=== PATIENT | male | born 1935 | race Caucasian/White ===

== ENCOUNTER 2018-07-25 14:33 | Inpatient (IN) | payer MEDICARE ==
[~2018-07-25] VITALS: Ht 188 cm; Wt 93.0 kg
--- NOTE | 2018-07-25 14:51 | EKG ---
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
[2018-07-25 15:05] LABS: BASO % 1 % (0-3); EOS # 0.1 x10^3/uL (0.0-0.7); EOS % 3 % (0-3); HEMATOCRIT 36.9 % (39.0-53.0); HEMOGLOBIN 12.5 g/dL (13.0-17.5); LYMPH # 1.6 x10^3/uL (1.0-4.8); LYMPH % 37 % (24-48); MEAN CORPUSCULAR HEMOGLOBIN 31 pg (25-35); MEAN CORPUSCULAR HGB CONC 34 g/dL (31-37); MEAN CORPUSCULAR VOLUME 93 fL (79-100); MONO # 0.4 x10^3/uL (0.0-1.1); MONO % 10 % (0-9); NEUT # 2.1 x10^3uL (1.8-7.7); NEUT % 49 % (31-73); PLATELET COUNT 94 x10^3/uL (140-400); RED BLOOD COUNT 3.99 x10^6/uL (4.30-5.70); RED CELL DISTRIBUTION WIDTH 14.9 % (11.5-14.5); WHITE BLOOD COUNT 4.2 x10^3/uL (4.0-11.0)
[2018-07-25 15:15] LABS: CLARITY,URINE CLEAR; COLOR,URINE AMBER; GLUCOSE,URINE NEG (NEG)
[2018-07-25 15:16] LABS: AMORPHOUS SEDIMENT,UR PRESENT /HPF; BACTERIA,URINE 0 /HPF (0-FEW); BILIRUBIN,URINE NEG (NEG); NITRITE,URINE NEG (NEG); SQUAMOUS EPITHELIAL CELL,UR OCC /LPF; UROBILINOGEN,URINE 4 mg/dL (0.2 mg/dL)
[2018-07-25 15:16] LABS: ALBUMIN 2.9 g/dL (3.4-5.0); ALBUMIN/GLOBULIN RATIO 0.9 (1.0-1.7); CALCIUM 8.6 mg/dL (8.5-10.1); CREATININE 1.1 mg/dL (0.7-1.3); GFR 64.1; MAGNESIUM 1.8 mg/dL (1.8-2.4); POTASSIUM 3.3 mmol/L (3.5-5.1); TOTAL BILIRUBIN 0.8 mg/dL (0.2-1.0); TOTAL PROTEIN 6.2 g/dL (6.4-8.2)
[2018-07-25] MEDS ORDERED: POTASSIUM CHLORIDE 20 MEQ TABLET.ER. PO ONE (15:30)
[2018-07-25] MEDS ORDERED: CIPROFLOXACIN HCL 500 MG TABLET PO ONE (15:30)
--- NOTE | 2018-07-25 17:01 | PHYS DOC ---
Past History Past Medical History: Anxiety, CAD, Cancer, Constipation, Dementia, Depression , High Cholesterol, Hypertension, Pneumonia, TIA, UTI, Other Past Surgical History: Cancer Surgery Alcohol Use: None Drug Use: None Adult General Chief Complaint Chief Complaint: PSYCH EVALUATION HPI HPI Patient is a 83 year old male resident of senior living brought in by EMS because of suicidal ideation and medical clearance for psychiatric admission. [facility] staff reported the high denies yesterday and wanted to kill himself. Patient stated he was upset yesterday and wanted to jump from the roof. He denies hallucination and homicidal ideation and any pain or suicidal ideation at this time. Review of Systems Review of Systems Constitutional: Denies fever or chills [] Eyes: Denies change in visual acuity, redness, or eye pain [] HENT: Denies nasal congestion or sore throat [] Respiratory: Denies cough or shortness of breath [] Cardiovascular: No additional information not addressed in HPI [] GI: Denies abdominal pain, nausea, vomiting, bloody stools or diarrhea [] : Denies dysuria or hematuria [] Musculoskeletal: Denies back pain or joint pain [] Integument: Denies rash or skin lesions [] Neurologic: Denies headache, focal weakness or sensory changes [] Endocrine: Denies polyuria or polydipsia [] All other systems were reviewed and found to be within normal limits, except as documented in this note. Family History Family History Not currently available Current Medications Current Medications Current Medications Medications (Trade) Dose Ordered Sig/Sravan Start Time Stop Time Status Last Admin Dose Admin Ciprofloxacin (Cipro) 500 mg 1X ONCE 07/25/18 15:30 07/25/18 15:31 DC 07/25/18 15:54 500 MG Potassium Chloride (Klor-Con) 40 meq 1X ONCE 07/25/18 15:30 07/25/18 15:31 DC 07/25/18 15:54 40 MEQ Allergies Allergies Allergies Coded Allergies Type Severity Reaction Last Updated Verified donepezil Allergy Unknown 07/25/18 Yes Physical Exam Physical Exam Constitutional: Well nourished, no acute distress, non-toxic appearance. [] HENT: Normocephalic, atraumatic. Eyes: PERRLA, EOMI, conjunctiva normal, no discharge. [] Neck: Normal range of motion, no tenderness, supple, no stridor. [] Cardiovascular:Heart rate regular rhythm, no murmur [] Lungs & Thorax: Bilateral breath sounds equal apex auscultation [] Abdomen: Bowel sounds normal, soft, no tenderness, no masses, no pulsatile masses. [] Distended. Old surgical scars. Skin: Warm, dry, no erythema, no rash. [] Back: No tenderness, no CVA tenderness. [] Extremities: No tenderness, no cyanosis, no clubbing, ROM intact, no edema. [] Degenerative joint changes. Neurologic: Alert and oriented X 2, normal motor function, normal sensory function, no focal deficits noted. [] Psychologic: Affect normal, judgement abnormal, denies suicidal ideation. Current Patient Data Vital Signs Vital Signs Date Time Temp Pulse Resp B/P (MAP) Pulse Ox O2 Delivery O2 Flow Rate FiO2 07/25/18 14:40 98.4 71 20 97 Room Air Lab Results Laboratory Tests Test 07/25/18 14:45 07/25/18 14:52 White Blood Count 4.2 x10^3/uL (4.0-11.0) Red Blood Count 3.99 x10^6/uL (4.30-5.70) L Hemoglobin 12.5 g/dL (13.0-17.5) L Hematocrit 36.9 % (39.0-53.0) L Mean Corpuscular Volume 93 fL (79-100) Mean Corpuscular Hemoglobin 31 pg (25-35) Mean Corpuscular Hemoglobin Concent 34 g/dL (31-37) Red Cell Distribution Width 14.9 % (11.5-14.5) H Platelet Count 94 x10^3/uL (140-400) L Neutrophils (%) (Auto) 49 % (31-73) Lymphocytes (%) (Auto) 37 % (24-48) Monocytes (%) (Auto) 10 % (0-9) H Eosinophils (%) (Auto) 3 % (0-3) Basophils (%) (Auto) 1 % (0-3) Neutrophils # (Auto) 2.1 x10^3uL (1.8-7.7) Lymphocytes # (Auto) 1.6 x10^3/uL (1.0-4.8) Monocytes # (Auto) 0.4 x10^3/uL (0.0-1.1) Eosinophils # (Auto) 0.1 x10^3/uL (0.0-0.7) Basophils # (Auto) 0.0 x10^3/uL (0.0-0.2) Sodium Level 144 mmol/L (136-145) Potassium Level 3.3 mmol/L (3.5-5.1) L Chloride Level 109 mmol/L (98-107) H Carbon Dioxide Level 26 mmol/L (21-32) Anion Gap 9 (6-14) Blood Urea Nitrogen 14 mg/dL (8-26) Creatinine 1.1 mg/dL (0.7-1.3) Estimated GFR (Cockcroft-Gault) 64.1 BUN/Creatinine Ratio 13 (6-20) Glucose Level 105 mg/dL (70-99) H Calcium Level 8.6 mg/dL (8.5-10.1) Magnesium Level 1.8 mg/dL (1.8-2.4) Total Bilirubin 0.8 mg/dL (0.2-1.0) Aspartate Amino Transferase (AST) 42 U/L (15-37) H Alanine Aminotransferase (ALT) 26 U/L (16-63) Alkaline Phosphatase 127 U/L (46-116) H Total Protein 6.2 g/dL (6.4-8.2) L Albumin 2.9 g/dL (3.4-5.0) L Albumin/Globulin Ratio 0.9 (1.0-1.7) L Urine Collection Type Unknown Urine Color Selam Urine Clarity Clear Urine pH 6.5 Urine Specific [place] 1.020 Urine Protein Neg (NEG-TRACE) Urine Glucose (UA) Neg mg/dL (NEG) Urine Ketones (Stick) Trace mg/dL (NEG) Urine Blood Trace (NEG) Urine Nitrite Neg (NEG) Urine Bilirubin Neg (NEG) Urine Urobilinogen Dipstick 4 mg/dL (0.2 mg/dL) Urine Leukocyte Esterase Neg (NEG) Urine RBC 6-10 /HPF (0-2) Urine WBC 5-10 /HPF (0-4) Urine Squamous Epithelial Cells Occ /LPF Urine Amorphous Sediment Present /HPF Urine Bacteria 0 /HPF (0-FEW) Urine Mucus Mod /LPF EKG EKG EKG interpreted by me. EKG at 1446 showed normal sinus rhythm at rate of 72 with PVCs, prolonged IN interval at 234, abnormal left axis deviation, left anterior 3-year-old fascicular block, right bundle branch block, bifascicular block, no acute ST and T-wave abnormalities. Radiology/Procedures Radiology/Procedures My interpretation of acute abdomen film shows increased stool throughout. Somewhat nonobstructive bowel gas pattern. Multiple surgical clips from previous prostatectomy. Does have clips from previous cholecystectomy. There is no free air in the diaphragm. There is genu joint changes as well as scoliosis and kyphosis. No significant acute changes on chest x-ray. No free air in the diaphragm. Somewhat tortuous aortic shadow. Significant degenerative joint changes. See formal report when available[] Course & Med Decision Making Course & Med Decision Making Pertinent Labs reviewed. (See chart for details) @1700: Evaluation of patient in ER showed 83-year-old male patient brought in from senior living because of suicidal ideation yesterday. Patient denies suicidal ideation at this time. Showed marked hypokalemia and UTI and patient treated with potassium and Cipro orally in ER. Because of insurance problems patient is not able to have admission at Senior behavioral unit at this hospital. Psych evaluation was requested pending evaluation. @1800: Patient had tele psych evaluation and patient had criteria for inpatient treatment with waiting for accepting placement. Patient care transferred to Dr. Deal at [address]. See Dr. Tolbert note for details. Pt. placement still pending finding a accepting hospital. Currently no hospital for psych. have openings or jo not accept pt. with his medical issues. Possible placement in Am. Pt. does have some restrictive medical issues that limit his acceptance in psych. units. Pt. not accepted at out [facility]. Consult Dr Garnica in AM or Counseling center to re- eval. SI/ Depression status. Pt. recommended for admit to Geriatric Psych. Unit by Dr. Lopez. Stop Zoloft and Remeron. Start Zy prexa, Fluoxetine, Ativan. See Dr. Lopez note. Will admit to Medical- Dr. Perdomo - for medical issues and pursue Psych issues with hopefully placement in AM once medical issues that are noted stabilized or determined to be stable and or chronic issues. Impression: 1. Depression 2. Suicidal ideation 3. Anemia 12.5 4. Thrombocytopenia 94 5. Hypokalemia 3.3 6. Alk. Phos 127 7. Malnutrition 2.9 Alb 8. Dysrhythmia - PVC's, Prolonged IN, Bifascicular block 9. Constipation 10. Elevated Ammonia 54 11. Dementia 12. Hx. of Impulsive and Disruptive Behavior Dragon Disclaimer Dragon Disclaimer This electronic medical record was generated, in whole or in part, using a voice recognition dictation system. Departure Departure: Impression: Primary Impression: Suicidal ideation Additional Impressions: Hypokalemia Urinary tract infection Referrals: BOZENA NOYOLA MD (PCP) Problem Qualifiers LORETA TOLBERT MD Jul 25, 2018 17:01 SOFI DEAL MD Jul 25, 2018 17:59
[2018-07-25] MEDS ORDERED: MAGNESIUM HYDROXIDE 2,400 MG/30 ML ORAL.SUSP. PO ONE (19:15)
[2018-07-25] MEDS ORDERED: LORazepam 2 MG/ML VIAL IV PRN (19:15)
[2018-07-25] MEDS ORDERED: POTASSIUM CHLORIDE 20 MEQ/15 ML ORAL LIQUID. PO ONE (19:15)
[2018-07-25] MEDS ORDERED: ONDANSETRON PF 4 MG/2 ML VIAL. IV PRN (19:15)
[2018-07-25] MEDS ORDERED: OLANZapine 2.5 MG TABLET PO ONE (19:45)
[2018-07-25] MEDS ORDERED: LORazepam 1 MG TABLET PO ONE (19:45)
[2018-07-25 20:50] VITALS: BP 164/89
--- NOTE | 2018-07-25 22:03 | RAD ---
Examination: ACUTE ABDOMEN SERIES History: Constipation, abdomen discomfort Comparison/Correlation: None Findings: Frontal views of the abdomen were obtained. Frontal view of the chest was provided. Heart size and bony vasculature are normal. No infiltrate. Tortuosity thoracic aorta is present. No pneumothorax. Dextroconvex scoliosis of the thoracolumbar spine is present. Right upper quadrant surgical clips noted. Severe degenerative space narrowing from L1 to L3 is noted. Retained stones involving the proximal hemicolon is present. Surgical clips involve the pelvis. Impression: No obstruction. Moderate quantity of retained stool in the proximal hemicolon. No infiltrate. Electronically signed by: Son Del Toro MD (07/25/2018 9:59 PM) [facility]
[2018-07-25 22:58] VITALS: BP 148/79
[2018-07-26] MEDS ORDERED: MEMA10TA PO (04:21)
[2018-07-26] MEDS ORDERED: SULFACETAMIDE SODIUM TP (04:21)
[2018-07-26] MEDS ORDERED: POLY17PO5 PO (04:21)
[2018-07-26] MEDS ORDERED: PNV11TAB5 PO (04:21)
[2018-07-26] MEDS ORDERED: MIRT15TA3 PO (04:21)
[2018-07-26] MEDS ORDERED: BISA5TAB4 PO (04:21)
[2018-07-26] MEDS ORDERED: KETO120S5 TP (04:21)
[2018-07-26] MEDS ORDERED: DOCU100C28 PO (04:21)
[2018-07-26] MEDS ORDERED: SERT50TA8 PO (04:21)
[2018-07-26] MEDS ORDERED: ASPI-630 PO (04:21)
[2018-07-26 06:15] VITALS: BP 132/75
[2018-07-26 06:35] LABS: BASO % 1 % (0-3); EOS # 0.1 x10^3/uL (0.0-0.7); EOS % 4 % (0-3); HEMATOCRIT 35.5 % (39.0-53.0); LYMPH # 1.4 x10^3/uL (1.0-4.8); LYMPH % 40 % (24-48); MEAN CORPUSCULAR HEMOGLOBIN 31 pg (25-35); MEAN CORPUSCULAR HGB CONC 34 g/dL (31-37); MEAN CORPUSCULAR VOLUME 93 fL (79-100); MONO # 0.4 x10^3/uL (0.0-1.1); MONO % 12 % (0-9); NEUT # 1.5 x10^3uL (1.8-7.7); NEUT % 43 % (31-73); PLATELET COUNT 81 x10^3/uL (140-400); RED BLOOD COUNT 3.82 x10^6/uL (4.30-5.70); RED CELL DISTRIBUTION WIDTH 14.7 % (11.5-14.5); WHITE BLOOD COUNT 3.4 x10^3/uL (4.0-11.0)
[2018-07-26 06:48] LABS: CALCIUM 8.4 mg/dL (8.5-10.1); CREATININE 0.9 mg/dL (0.7-1.3); GFR 80.8; POTASSIUM 3.8 mmol/L (3.5-5.1)
[2018-07-26 08:29] LABS: PLT ESTIMATE DECREASED (ADEQUATE)
[2018-07-26] MEDS ORDERED: FLUoxetine HCL 10 MG CAPSULE PO SCH (09:00)
[2018-07-26 10:50] VITALS: BP 91/54
[2018-07-26] MEDS ORDERED: DOCUSATE SODIUM 100 MG CAPSULE PO PRN (12:15)
[2018-07-26] MEDS ORDERED: BISACODYL TAB 5 MG TABLET.DR. PO PRN (12:15)
--- NOTE | 2018-07-26 13:12 | HP ---
ADMIT DATE: 07/25/2018 HISTORY OF PRESENT ILLNESS: The patient is an 83-year-old male patient, resident at [facility] who apparently has been noted to have increased paranoia, exit seeking, has a butter knife and threatening to stab himself as he felt that he was held hostage. He apparently has some form of flashback. He was sent to the Emergency Room of [facility] for medical clearance for psychiatric admission. Apparently, he was found to have multiple medical problems and unfortunately he does not qualify to be admitted to Senior Behavioral Unit at [facility]. The patient himself is demented and really does not give any useful information. PAST MEDICAL HISTORY: Significant for atherosclerotic heart disease, [place] coronary arteries without angina. He has chronic constipation, hyperlipidemia, iron deficiency anemia, marked muscle weakness and unspecified dementia. He also had anxiety, depression and dementia. He has also history of hypertension, TIA, and UTIs. PAST SURGICAL HISTORY: Significant for cancer surgery, although I could not really get more specific about that. FAMILY HISTORY: Unavailable. SOCIAL HISTORY: He is a resident at [facility]. He does not smoke, drink alcohol or use any recreational drugs. ALLERGIES: HE IS ALLERGIC TO ARICEPT. MEDICATIONS: He is currently on following medications: He is on aspirin 81 mg once a day, mirtazapine 7.5 mg at bedtime, sertraline 50 mg daily, Namenda XR 28 mg at bedtime, bisacodyl 10 mg tablet daily p.r.n. for constipation, Colace 100 mg twice a day, polyethylene glycol 17 grams every 12 hours as needed. He is on ketaconazole for Nizoral shampoo 1 application topically weekly. He is on gummies p.o. daily. He is on sulfacetamide sodium to be applied topically daily for dry skin. REVIEW OF SYSTEMS: As per history of present illness. PHYSICAL EXAMINATION: GENERAL: On arrival to the Emergency Room, he apparently was well nourished, in no acute distress. He was nontoxic. VITAL SIGNS: His heart rate was 71, blood pressure was 158/87, temperature was 98.4, respiratory rate 20, and oxygen saturation was 97% on room air. HEAD, EYES, EARS, NOSE AND THROAT: Showed normocephalic, atraumatic. NECK: Supple. No lymphadenopathy, no thyromegaly, no jugular venous distension. No lower limb edema and no audible bruit. HEART: Showed normal first and second heart sounds. No gallop, rub or murmur. CHEST: Good. He does have bilateral chest expansion. Good air entry and vesicular sounds with no crepitation or rhonchi. ABDOMEN: Slightly distended, soft, nontender. No guarding or rigidity. No organomegaly. Hernial orifice is intact. Bowel sounds normal. EXTREMITIES: Showed no clubbing, cyanosis or edema. NEUROLOGIC: He was alert, oriented x 2 with normal motor function with no obvious focal deficit. EMERGENCY ROOM COURSE: While in the Emergency Room, he has had lab work done, which showed that his serum sodium was 144, potassium 3.3, chloride 109, bicarbonate 26, anion gap of 9, BUN 14, creatinine 1.1, estimated GFR was 64 mL per minute. His glucose was 105, calcium was 8.6, magnesium was 1.8, total bilirubin 0.8. AST and alkaline phosphatase are elevated. ALT was normal. His ammonia was only 54, which is definitely higher than the upper limit of normal at the normal range 11-34. His total protein was 6.2, albumin was 2.9. His white cell count was 4200, hemoglobin 12.5, hematocrit 36, MCV 93, and platelet count of 94,000. His urinalysis showed the urine was nichelle, clear with a pH of 6.5, specific gravity of 1.020. The urine was negative for protein, glucose with trace of ketones, trace of blood, negative for nitrite and leukocyte esterase. There is only 6-10 wbc's, 6-10 rbc's and no bacteria. He has acute abdomen series, which showed that the patient heart size and bony structures are normal. No infiltrate. Torturous thoracic aorta is present. No pneumothorax. Dextroconvex scoliosis of the thoracolumbar spine is present with right upper quadrant surgical clips noted. Severe degenerative space narrowing from L1-L3 is noted. Retained stones involving the proximal hemicolon is present. Surgical clips involving the pelvis. IMPRESSION: The patient has no obstruction and moderate quantity of retained stool in the proximal hemicolon. No infiltrate. ASSESSMENT AND PLAN: The patient was admitted as attempt to place him in an inpatient psych unit has failed. He was admitted with following medical problems including depression, anxiety and suicidal ideation. He was found to have anemia, thrombocytopenia and hypokalemia. He has also prolonged NE interval, as well as bifascicular block, elevated ammonia, dementia, history of impulsive and disruptive behavior. He has probably anemia, thrombocytopenia and hyperammonemia cannot be explained probably because of underlying liver disease. We will replenish his potassium and monitor his lab work and obviously await placement in an inpatient psych unit. CECI BEST MD DR: YONY/shannan JOB#: [id number] / [id number]
--- NOTE | 2018-07-26 13:30 | PDOC2 ---
CONSULT Date of Admission DATE: 07/26/18 TIME: 13:30 Reason for Consult: Bradycardia Referring Physician: Dr. Perdomo Chief Complaint Suicidal ideation Source: Chart review, Patient Problem List Problems Medical Problems: (1) Hypokalemia Status: Acute (2) Suicidal ideation Status: Acute (3) Urinary tract infection Status: Acute History of Present Illness 83-year-old male, resident of [facility] was sent to ED for increasing paranoia and threatening to stab himself stating that he was being held hostage. He apparently had few episodes of bradycardia with heart rate dropping into the 40s and hence cardiology has been consulted. Patient is not a very good historian but denied any chest pain, dizziness, palpitations or syncope. Past Medical History Coronary artery disease Hyperlipidemia Anemia Hypertension TIA Dementia Chronic constipation Past Surgical History Patient had some kind of surgery for cancer, details not available. Family History not available Social History Resident of [facility], non smoker, non drinker Current Medications Current Medications Ciprofloxacin (Cipro) 500 mg 1X ONCE PO Last administered on 07/25/18at 15:54; Start 07/25/18 at 15:30; Stop 07/25/18 at 15:31; Status DC Potassium Chloride (Klor-Con) 40 meq 1X ONCE PO Last administered on at 15:54; Start 07/25/18 at 15:30; Stop 07/25/18 at 15:31; Status DC Potassium Chloride (KCl Oral Soln) 40 meq 1X ONCE PO Last administered on 07/25at 21:48; Start 07/25/18 at 19:15; Stop 07/25/18 at 19:16; Status DC Magnesium Hydroxide (Milk Of Magnesia) 2,400 mg 1X ONCE PO Last administered on 07/25/18at 19:18; Start 07/25/18 at 19:15; Stop 07/25/18 at 19:16; Status DC Ondansetron HCl (Zofran) 4 mg PRN Q4HRS PRN IV NAUSEA/VOMITING; Start 07/25/18 at 19:15; Stop 07/26/18 at 19:14 Potassium Chloride (KCl Oral Soln) 40 meq 1X ONCE PO ; Start 07/26/18 at 19:45 ; Stop 07/26/18 at 19:46 Olanzapine (ZyPREXA) 1.25 mg 1X ONCE PO Last administered on 07/25/18at 21:49; Start 07/25/18 at 19:45; Stop 07/25/18 at 19:46; Status DC Fluoxetine HCl (PROzac) 10 mg DAILY PO Last administered on 07/26/18at 09:35; Start 07/26/18 at 09:00 Lorazepam (Ativan) 0.5 mg 1X ONCE PO Last administered on 07/25/18at 21:49; Start 07/25/18 at 19:45; Stop 07/25/18 at 19:46; Status DC Lorazepam (Ativan) 1 mg PRN QID PRN IV AGITATION; Start 07/25/18 at 19:15 Bisacodyl (Dulcolax Tab) 5 mg PRN DAILY PRN PO CONSTIPATION; Start 07/26/18 at 12:15 Ketoconazole (Nizoral 2% Shampoo) 1 josefa WEEKLY TP ; Start 08/02/18 at 09:00 Sertraline HCl (Zoloft) 50 mg DAILY PO ; Start 07/27/18 at 09:00 Aspirin (Children'S Aspirin) 81 mg DAILYWBKFT PO ; Start 07/27/18 at 08:00 Docusate Sodium (Colace) 100 mg PRN BID PRN PO CONSTIPATION; Start 07/26/18 at 12:15 Memantine (Namenda) 10 mg BID PO ; Start 07/26/18 at 21:00 Mirtazapine (Remeron) 7.5 mg QHS PO ; Start 07/26/18 at 21:00 Polyethylene Glycol (miraLAX) 17 gm DAILY PO ; Start 07/27/18 at 09:00 Active Scripts Active Reported Sertraline Hcl 50 Mg Tablet 50 Mg PO DAILY PRN [sulfacetamide sodium] 1 Josefa TP DAILY PRN Mirtazapine 15 Mg Tablet 0.5 Tab PO QHS PRN Gummies (Jrv730/FA/Omega3/Dha/Fish Oil) 1 Each Tab.chew 2 Each PO DAILYWBKFT Nizoral (Ketoconazole) 120 Ml Shampoo 1 Josefa TP WEEKLY Namenda (Memantine Hcl) 10 Mg Tablet 28 Mg PO HS Miralax (Polyethylene Glycol 3350) 17 Gm Powd.pack 17 Gm PO Q12HR PRN Docusate Sodium 100 Mg Capsule 100 Mg PO Q12HR PRN Bisacodyl 5 Mg Tablet.dr 5 Mg PO PRN DAILY PRN Aspirin 81 Mg Tab.chew 81 Mg PO DAILY16 Allergies: Coded Allergies: donepezil (Verified Allergy, Unknown, 07/25/18) Review of System Further review of systems cannot be obtained since he is not a good historian PSYCHOLOGICAL ROS: YES: Behavioral Disorder, Depression, Suicidal ideation Eyes: No: Loss of vision ENDOCRINE: YES: Mood Swings Respiratory: No: Hemoptysis Gastrointestinal: YES: Constipation; No: Vomiting Neurological: YES: Behavorial Changes, Confusion, Memory Loss; No: Seizures Skin: No: Rash General: No acute distress HEENT: Atraumatic Lungs: Clear to auscultation Heart: Regular rate Abdomen: Soft Extremities: No edema VITALS Vital Signs Date Time Temp Pulse Resp B/P (MAP) Pulse Ox O2 Delivery O2 Flow Rate FiO2 07/26/18 10:50 97.2 65 18 91/54 (66) 96 07/26/18 08:15 Room Air Labs Laboratory Tests Test 07/25/18 14:45 07/25/18 14:52 07/25/18 18:42 07/25/18 19:12 White Blood Count 4.2 x10^3/uL (4.0-11.0) Red Blood Count 3.99 x10^6/uL (4.30-5.70) Hemoglobin 12.5 g/dL (13.0-17.5) Hematocrit 36.9 % (39.0-53.0) Mean Corpuscular Volume 93 fL (79-100) Mean Corpuscular Hemoglobin 31 pg (25-35) Mean Corpuscular Hemoglobin Concent 34 g/dL (31-37) Red Cell Distribution Width 14.9 % (11.5-14.5) Platelet Count 94 x10^3/uL (140-400) Neutrophils (%) (Auto) 49 % (31-73) Lymphocytes (%) (Auto) 37 % (24-48) Monocytes (%) (Auto) 10 % (0-9) Eosinophils (%) (Auto) 3 % (0-3) Basophils (%) (Auto) 1 % (0-3) Neutrophils # (Auto) 2.1 x10^3uL (1.8-7.7) Lymphocytes # (Auto) 1.6 x10^3/uL (1.0-4.8) Monocytes # (Auto) 0.4 x10^3/uL (0.0-1.1) Eosinophils # (Auto) 0.1 x10^3/uL (0.0-0.7) Basophils # (Auto) 0.0 x10^3/uL (0.0-0.2) Sodium Level 144 mmol/L (136-145) Potassium Level 3.3 mmol/L (3.5-5.1) Chloride Level 109 mmol/L (98-107) Carbon Dioxide Level 26 mmol/L (21-32) Anion Gap 9 (6-14) Blood Urea Nitrogen 14 mg/dL (8-26) Creatinine 1.1 mg/dL (0.7-1.3) Estimated GFR (Cockcroft-Gault) 64.1 BUN/Creatinine Ratio 13 (6-20) Glucose Level 105 mg/dL (70-99) Calcium Level 8.6 mg/dL (8.5-10.1) Magnesium Level 1.8 mg/dL (1.8-2.4) Total Bilirubin 0.8 mg/dL (0.2-1.0) Aspartate Amino Transf (AST/SGOT) 42 U/L (15-37) Alanine Aminotransferase (ALT/SGPT) 26 U/L (16-63) Alkaline Phosphatase 127 U/L (46-116) Total Protein 6.2 g/dL (6.4-8.2) Albumin 2.9 g/dL (3.4-5.0) Albumin/Globulin Ratio 0.9 (1.0-1.7) Urine Collection Type Unknown Urine Color Selam Urine Clarity Clear Urine pH 6.5 Urine Specific [place] 1.020 Urine Protein Neg (NEG-TRACE) Urine Glucose (UA) Neg mg/dL (NEG) Urine Ketones (Stick) Trace mg/dL (NEG) Urine Blood Trace (NEG) Urine Nitrite Neg (NEG) Urine Bilirubin Neg (NEG) Urine Urobilinogen Dipstick 4 mg/dL (0.2 mg/dL) Urine Leukocyte Esterase Neg (NEG) Urine RBC 6-10 /HPF (0-2) Urine WBC 5-10 /HPF (0-4) Urine Squamous Epithelial Cells Occ /LPF Urine Amorphous Sediment Present /HPF Urine Bacteria 0 /HPF (0-FEW) Urine Mucus Mod /LPF Ammonia 54 mcmol/L (11-34) Troponin I Quantitative 0.023 ng/mL (0-0.055) Test 07/26/18 06:20 07/26/18 12:15 White Blood Count 3.4 x10^3/uL (4.0-11.0) Red Blood Count 3.82 x10^6/uL (4.30-5.70) Hemoglobin 12.0 g/dL (13.0-17.5) Hematocrit 35.5 % (39.0-53.0) Mean Corpuscular Volume 93 fL (79-100) Mean Corpuscular Hemoglobin 31 pg (25-35) Mean Corpuscular Hemoglobin Concent 34 g/dL (31-37) Red Cell Distribution Width 14.7 % (11.5-14.5) Platelet Count 81 x10^3/uL (140-400) Neutrophils (%) (Auto) 43 % (31-73) Lymphocytes (%) (Auto) 40 % (24-48) Monocytes (%) (Auto) 12 % (0-9) Eosinophils (%) (Auto) 4 % (0-3) Basophils (%) (Auto) 1 % (0-3) Neutrophils # (Auto) 1.5 x10^3uL (1.8-7.7) Lymphocytes # (Auto) 1.4 x10^3/uL (1.0-4.8) Monocytes # (Auto) 0.4 x10^3/uL (0.0-1.1) Eosinophils # (Auto) 0.1 x10^3/uL (0.0-0.7) Basophils # (Auto) 0.0 x10^3/uL (0.0-0.2) Platelet Estimate Decreased (ADEQUATE) Large Platelets Occ Sodium Level 144 mmol/L (136-145) Potassium Level 3.8 mmol/L (3.5-5.1) Chloride Level 111 mmol/L (98-107) Carbon Dioxide Level 25 mmol/L (21-32) Anion Gap 8 (6-14) Blood Urea Nitrogen 13 mg/dL (8-26) Creatinine 0.9 mg/dL (0.7-1.3) Estimated GFR (Cockcroft-Gault) 80.8 Glucose Level 89 mg/dL (70-99) Calcium Level 8.4 mg/dL (8.5-10.1) Prothrombin Time 12.6 SEC (9.4-11.4) Prothromb Time International Ratio 1.3 (0.9-1.1) Assessment/Plan 1. Sinus bradycardia, episodic, currently resolved. This is most probably secondary to vagal reaction. No significant pauses noted. EKG showed sinus rhythm with right bundle branch block and left anterior fascicular block.Patient denied any syncope. Check TSH level. Patient not on any rate lowering medications. Event monitor could be considered as an outpatient once active issues resolve. 2. Coronary artery disease: Clinically stable 3. Depression, suicidal ideation: Waiting for placement to inpatient psych Thank you for your consultation ANDRAE POTTER MD Jul 26, 2018 13:30
[2018-07-26 14:28] VITALS: BP 145/79
--- NOTE | 2018-07-26 15:59 | DS ---
DATE OF DISCHARGE: 07/26/2018 HOSPITAL COURSE: The patient is an 83-year-old male patient, a resident at [facility] who apparently was noted to be having increased paranoia, exit seeking, has a butter knife and threatened to stab himself as he felt he was held hostage. He apparently has some form of flashback, he was sent to the Emergency Room at [facility] for medical clearance for inpatient psychiatric treatment. On evaluation him in the Emergency Room, he was found multiple medical problems and unfortunately, he did not qualify to be admitted to [facility] at [facility]. The patient was found to have anemia, thrombocytopenia, and elevated ammonia, all consistent probably with chronic liver disease. His potassium is low. What is more concerning is that he was found to have prolonged [place] interval, as well as bifascicular block and therefore, we did consult the citrus picker who recommended that the patient can safely be discharged back. He did not display any abnormal behavior here. He did not threaten to kill himself. He was not suicidal or homicidal, and as he was stable medically, the patient was discharged back to the [facility]. PHYSICAL EXAMINATION: GENERAL: When I saw him this afternoon, he looked well and was clearly in no apparent respiratory distress, slightly pale, no jaundice, cyanosis, or thyromegaly. No jugular venous distension. No limb edema. VITAL SIGNS: His heart rate was 65, blood pressure was 145/79, temperature was 97.8, respiratory rate was 18 and oxygen saturation was 98%. HEAD, EYES, EARS, NOSE AND THROAT: Normocephalic, atraumatic. NECK: Supple. HEART: Showed normal first and second sounds. No gallop, rub or murmur. CHEST: Clear to auscultation. No crepitation or rhonchi. ABDOMEN: Slightly distended, soft, nontender. NEUROLOGIC: He was demented, but without any obvious lateralizing sign. The patient is able to walk with a walker. LABORATORY DATA: This afternoon showed a white cell count of 3400, hemoglobin 12, hematocrit 36, MCV 93, and platelet count of 81,000 with normal manual differential. His chemistry showed a serum sodium 144, potassium 3.8, chloride 111, bicarbonate 25, anion gap of 8, BUN 13, creatinine 0.9, estimated GFR was 81 mL per minute. His glucose was 89, calcium was 8.4. His prothrombin time was 12.6, INR 1.3. Urinalysis was unremarkable. DISCHARGE MEDICATIONS: He was discharged back to [facility] facility to continue with aspirin 81 mg once a day, bisacodyl 5 mg daily, Colace 100 mg twice a day as needed, Nizoral shampoo once a week, Namenda 28 mg once a day, mirtazapine 7.5 mg at bedtime, gummies 2 tablets daily with breakfast, polyethylene glycol 17 grams every 12 hours as needed, sertraline 50 mg once a day, sulfacetamide sodium applied topically daily p.r.n. for dry skin and scaling. FINAL DISCHARGE DIAGNOSES: Normochromic normocytic anemia, thrombocytopenia; hypokalemia, resolved. Serum potassium is up to 3.8, elevated ammonia, together with anemia and thrombocytopenia, probably indicating chronic liver disease, together with deranged liver enzymes, moderate protein calorie malnutrition with serum albumin is only 2.9. The patient has first-degree heart block and bifascicular block. CECI BEST MD DR: YONY/shannan JOB#: [id number] / [id number]
--- NOTE | 2018-07-26 18:19 | PN ---
DATE: 07/26/2018 SUBJECTIVE: The patient is an 83-year-old male patient, a resident at the [facility], who was admitted with increased paranoia, exit seeking, has a butter knife, and threatening to stab himself, and was sent to the Emergency Room of for medical clearance to be admitted to [facility]. Unfortunately, he did not qualify because of the insurance problem and because of his multiple medical problems, he was admitted to [address] [place] [address]. The patient himself denied any making suicidal notes, denied any complaint. When he was evaluated in the Emergency Room, he was found to have multiple medical problems including an EKG, which showed that he was in sinus rhythm at a rate of 72 beats per minute with premature ventricular contraction, prolonged AR interval at 234. He has abnormal left axis deviation. He has a left anterior fascicular block and right bundle branch block, but no ST-T changes. His lab work showed that he has anemia, thrombocytopenia with a platelet count of 94,000. His ammonia was elevated at 54 with normal range of 34, some abnormal liver enzymes, and hypoalbuminemia, all consistent probably with chronic liver disease. He obviously has hypokalemia and he was given oral potassium. PHYSICAL EXAMINATION: GENERAL: When I saw him today, he looked well and was clearly in no apparent respiratory distress, slightly pale, but no jaundice, cyanosis, or thyromegaly. No jugular venous distension. No limb edema. VITAL SIGNS: His heart rate was 65, blood pressure was 91/54, his temperature was 97.2, respiratory rate was 18 and oxygen saturation was 96%. HEAD, EYES, EARS, NOSE AND THROAT: Showed normocephalic, atraumatic. NECK: Supple. HEART: Showed normal first and second heart sounds. No gallop, rub or murmur. CHEST: Clear to auscultation. No crepitation or rhonchi. ABDOMEN: Distended, soft, nontender. No guarding or rigidity. No organomegaly. All the hernial orifices are intact. Bowel sounds normal. NEUROLOGIC: He was awake, alert, but disoriented to place and person. However, all his cranial nerves are intact. He moves extremities without difficulty. His intake over the last 24 hours was 720, output was 850. LABORATORY DATA: His lab work this morning showed a white cell count of 3400, hemoglobin 12, hematocrit 36, MCV 93, and platelet count of 81,000 with normal manual differential. His chemistry showed a serum sodium of 144, potassium 3.8, chloride 111, bicarbonate 25, anion gap of 8, BUN 13, creatinine 0.9, estimated GFR was 80 mL per minute. His glucose was 89, calcium was 8.4. ASSESSMENT: In summary, this is an 83-year-old male patient, a resident at [facility], who was admitted because of suicidal ideation. He has multiple medical problems including hypertension, hyperlipidemia, atherosclerotic heart disease, chronic constipation, iron deficiency anemia, muscle weakness, anxiety, depression, and dementia. His lab work showed that the constellation of finding probably consistent with at least chronic liver disease, hypoalbuminemia, hyperammonemia, thrombocytopenia, and deranged liver enzymes are consistent with chronic liver disease. PLAN: I have added prothrombin time to complete investigation. We will continue all his medication and await placement in an inpatient psychiatric unit. CECI BEST MD DR: YONY/shannan JOB#: [id number] / [id number]
[2018-07-26] MEDS ORDERED: POTASSIUM CHLORIDE 20 MEQ/15 ML ORAL LIQUID. PO ONE (19:45)
[2018-07-26] MEDS ORDERED: MEMANTINE 10 MG TABLET. PO SCH (21:00)
[2018-07-26] MEDS ORDERED: MIRTAZAPINE 7.5 MG TABLET. PO SCH (21:00)
[2018-07-27] MEDS ORDERED: ASPIRIN 81 MG TAB.CHEW PO SCH (08:00)
[2018-07-27] MEDS ORDERED: POLYETHYLENE GLYCOL 3350 17 GM PACKET. PO SCH (09:00)
[2018-07-27] MEDS ORDERED: SERTRALINE 50 MG TABLET. PO SCH (09:00)
[2018-08-02] MEDS ORDERED: KETOCONAZOLE 2% SHAMPOO 120ML BOTTLE. TP SCH (09:00)
== END 2018-07-26 16:52 | DRG 309 ==
LOC: ER 14:33 → 1 SOUTH 19:00
PROVIDERS: ADMIT Internal Medicine; ATTEND Internal Medicine
DX: I45.2 Bifascicular block (principal); N39.0 Urinary tract infection, site not specified; E44.0 Moderate protein-calorie malnutrition; E72.20 Disorder of urea cycle metabolism, unspecified; R45.851 Suicidal ideations; D50.9 Iron deficiency anemia, unspecified; D69.6 Thrombocytopenia, unspecified; E78.00 Pure hypercholesterolemia, unspecified; E78.5 Hyperlipidemia, unspecified; E87.6 Hypokalemia; F03.90 Unspecified dementia, unspecified severity, without behavioral disturbance, psychotic disturbance, mood disturbance, and anxiety; F32.9 Major depressive disorder, single episode, unspecified; F41.9 Anxiety disorder, unspecified; I10 Essential (primary) hypertension; I25.10 Atherosclerotic heart disease of native coronary artery without angina pectoris; I44.0 Atrioventricular block, first degree; K59.09 Other constipation; K76.9 Liver disease, unspecified; Z02.89 Encounter for other administrative examinations; Z86.73 Personal history of transient ischemic attack (TIA), and cerebral infarction without residual deficits; Z87.01 Personal history of pneumonia (recurrent); Z88.8 Allergy status to other drugs, medicaments and biological substances; Z79.899 Other long term (current) drug therapy; Z68.26 Body mass index [BMI] 26.0-26.9, adult
CPT/HCPCS: 36415; 74022; 80048; 80053; 81001; 82140; 83735; 84443; 84484; 85025; 85610; 87086; 87641; 93005; 99285-25

== ENCOUNTER 2019-03-07 06:53 | Emergency (ER) | payer MEDICARE ==
[~2019-03-07] VITALS: Ht 188 cm; Wt 93.0 kg
[2019-03-07 06:53] VITALS: BP 162/85
[~2019-03-07 06:53] MED LIST: ASPI-630 PO; BISA5TAB4 PO; DOCU100C28 PO; KETO120S5 TP; MEMA10TA PO; MIRT15TA3 PO; PNV11TAB5 PO; POLY17PO5 PO; SERT50TA8 PO; SULFACETAMIDE SODIUM TP
[2019-03-07 07:19] LABS: BASO # 0.1 x10^3/uL (0.0-0.2); BASO % 1 % (0-3); EOS # 0.1 x10^3/uL (0.0-0.7); EOS % 3 % (0-3); HEMATOCRIT 40.2 % (39.0-53.0); HEMOGLOBIN 13.5 g/dL (13.0-17.5); LYMPH # 1.4 x10^3/uL (1.0-4.8); LYMPH % 27 % (24-48); MEAN CORPUSCULAR HEMOGLOBIN 31 pg (25-35); MEAN CORPUSCULAR HGB CONC 34 g/dL (31-37); MEAN CORPUSCULAR VOLUME 93 fL (79-100); MONO # 0.5 x10^3/uL (0.0-1.1); MONO % 10 % (0-9); NEUT # 3.2 x10^3uL (1.8-7.7); NEUT % 60 % (31-73); PLATELET COUNT 101 x10^3/uL (140-400); RED BLOOD COUNT 4.33 x10^6/uL (4.30-5.70); RED CELL DISTRIBUTION WIDTH 14.7 % (11.5-14.5); WHITE BLOOD COUNT 5.3 x10^3/uL (4.0-11.0)
[2019-03-07 07:30] LABS: ALBUMIN 3.5 g/dL (3.4-5.0); ALBUMIN/GLOBULIN RATIO 1.2 (1.0-1.7); CALCIUM 9.2 mg/dL (8.5-10.1); CREATININE 1.1 mg/dL (0.7-1.3); GFR 64.1; MAGNESIUM 1.7 mg/dL (1.8-2.4); POTASSIUM 3.1 mmol/L (3.5-5.1); TOTAL BILIRUBIN 0.6 mg/dL (0.2-1.0); TOTAL PROTEIN 6.4 g/dL (6.4-8.2)
[2019-03-07 07:40] LABS: AMORPHOUS SEDIMENT,UR PRESENT /HPF; BACTERIA,URINE 0 /HPF (0-FEW); BILIRUBIN,URINE NEG (NEG); CLARITY,URINE HAZY; COLOR,URINE YELLOW; GLUCOSE,URINE NEG (NEG); GRANULAR CASTS,URINE OCC /HPF; HYALINE CASTS, URINE FEW /HPF; NITRITE,URINE NEG (NEG); RBC,URINE OCC /HPF (0-2); SQUAMOUS EPITHELIAL CELL,UR FEW /LPF; UROBILINOGEN,URINE 2 mg/dL (0.2 mg/dL); WBC,URINE OCC /HPF (0-4)
[2019-03-07] MEDS ORDERED: POTASSIUM CHLORIDE 20 MEQ TABLET.ER. PO ONE (07:56)
[2019-03-07] MEDS ORDERED: POTASSIUM BICARB 20 MEQ EFFERVESCENT TABLET. ONE (07:57)
--- NOTE | 2019-03-07 08:00 | PHYS DOC ---
Past History Past Medical History: Anxiety, CAD, Cancer, Constipation, Dementia, Depression, High Cholesterol, Hypertension, Pneumonia, TIA, UTI, Other Additional Past Medical Histor: actinic keratosis, prostate cancer, seborrheic dermatitis, insomnia Past Surgical History: Cancer Surgery Smoking: Non-smoker Alcohol Use: None Drug Use: None Adult General Chief Complaint Chief Complaint: PSYCH EVALUATION HPI HPI Patient is a 83-year-old male presents with destructive behavior at the [facility] care facility where he resides. Patient believes that he was saving children. Patient denies any current complaints. Denies any suicidal or homicidal ideation. Nothing makes the symptoms better or worse. History is limited from the patient due to a known history of dementia. He is denying any chest pain or palpitations.[] Review of Systems Review of Systems Constitutional: Denies fever or chills [] Eyes: Denies change in visual acuity, redness, or eye pain [] HENT: Denies nasal congestion or sore throat [] Respiratory: Denies cough or shortness of breath [] Cardiovascular: No chest pain or palpitations[] GI: Denies abdominal pain, nausea, vomiting, bloody stools or diarrhea [] : Denies dysuria or hematuria [] Musculoskeletal: Denies back pain or joint pain [] Integument: Denies rash or skin lesions [] Neurologic: Denies headache, focal weakness or sensory changes [] Endocrine: Denies polyuria or polydipsia [] All other systems were reviewed and found to be within normal limits, except as documented in this note. Allergies Allergies Allergies Coded Allergies Type Severity Reaction Last Updated Verified donepezil Allergy Unknown 07/25/18 Yes Physical Exam Physical Exam Constitutional: Well developed, well nourished, no acute distress, non-toxic appearance. [] HENT: Normocephalic, atraumatic, bilateral external ears normal, oropharynx moist, no oral exudates, nose normal. [] Eyes: PERRLA, EOMI, conjunctiva normal, no discharge. [] Neck: Normal range of motion, no tenderness, supple, no stridor. [] Cardiovascular:Heart rate regular rhythm, no murmur [] Lungs & Thorax: Bilateral breath sounds clear to auscultation [] Abdomen: Bowel sounds normal, soft, no tenderness, no masses, no pulsatile masses. [] Skin: Warm, dry, no erythema, no rash. [] Back: No tenderness, no CVA tenderness. [] Extremities: No tenderness, no cyanosis, no clubbing, ROM intact, no edema. [] Neurologic: Alert and oriented X 2 (person and hospital), normal motor function, normal sensory function, no focal deficits noted. No asterixis, no nystagmus[] Psychologic: Affect flat, mood normal. [] EKG EKG EKG shows a sinus rhythm at 79 bpm, left axis deviation, QTC of 494, no ST elevations. An intraventricular block is present which is nonspecific, when compared with EKG of 07/25/2018 no specific EKG changes are noted. Interpreted by me at 0715.[] Radiology/Procedures Radiology/Procedures [] Course & Med Decision Making Course & Med Decision Making Pertinent Labs and Imaging studies reviewed. (See chart for details) ED course: Patient arrived by EMS, was transferred to our bed from their cot, and tolerated exam well. He has remained calm through his emergency department visit. No agitation. He is still convinced that he saved 10 children this morning. His potassium is noted to be a little bit low and magnesium also low. These are being replaced in the emergency department. He was also given a dose of lactulose for the elevated ammonia level. He was evaluated by telepsych who do not feel that he has some acute issue requiring admission. Medical decision making: Patient who is agitated at the assisted care facility where he resides. He is been calm and reasonable in the emergency department. He is hypokalemic and hypomagnesemic which has been repleted. Do not believe that caused his agitation. Nor his elevated ammonia level. Believe that he is medically stable for discharge given the lack of an acute medical issue.[] Dragon Disclaimer Dragon Disclaimer This electronic medical record was generated, in whole or in part, using a voice recognition dictation system. Departure Departure: Impression: Primary Impression: Dementia Additional Impressions: Agitation Hypokalemia Hypomagnesemia Hyperammonemia Disposition: 01 HOME, SELF-CARE Condition: IMPROVED Referrals: KRISH CHRISTIAN MD (PCP) Follow-up in 2 days Patient Instructions: Dementia, Hypokalemia, Hypomagnesemia Additional Instructions: Follow-up with your regular doctor in 2 days. Return to the ER if any concerns Scripts Lactulose (LACTULOSE) 10 Gm/15 Ml Solution 30 ML PO [id number] for elevated ammonia for 7 Days, #210 ML 0 Refills Prov: WASHIGNTONDIEGO GONZALEZ 03/07/19 Potassium Chloride (KLOR-CON M20) 20 Meq Tab.er.prt 1 TAB PO DAILY for low potassium, #10 TAB 0 Refills Prov: DIEGO DELAROSA DO 03/07/19 Problem Qualifiers Primary Impression: Dementia Dementia type: unspecified type Dementia behavioral disturbance: with behavioral disturbance Qualified Codes: F03.91 - Unspecified dementia with behavioral disturbance DIEGO DELAROSA DO Mar 07, 2019 08:00
[2019-03-07] MEDS: MAGNESIUM SULFATE 1GM 100 ML IV ONE (08:07)
[2019-03-07] MEDS: POTASSIUM BICARB 20 MEQ EFFERVESCENT TABLET. PO ONE (08:07)
[2019-03-07] MEDS: LACTULOSE 20 GM/30 ML SOLUTION. PO ONE (08:20)
[2019-03-07] MEDS ORDERED: LACT10SO PO (08:27)
[2019-03-07] MEDS ORDERED: POTA20TA4 PO (08:27)
--- NOTE | 2019-03-09 07:32 | EKG ---
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
== END 2019-03-07 08:55 | disposition home or self-care (01) ==
LOC: ER 06:53
DX: F03.91 Unspecified dementia, unspecified severity, with behavioral disturbance (principal); R45.1 Restlessness and agitation; E87.6 Hypokalemia; E83.42 Hypomagnesemia; E72.20 Disorder of urea cycle metabolism, unspecified; F41.9 Anxiety disorder, unspecified; I25.10 Atherosclerotic heart disease of native coronary artery without angina pectoris; F32.9 Major depressive disorder, single episode, unspecified; E78.00 Pure hypercholesterolemia, unspecified; I10 Essential (primary) hypertension; Z87.440 Personal history of urinary (tract) infections; Z86.73 Personal history of transient ischemic attack (TIA), and cerebral infarction without residual deficits; Z88.8 Allergy status to other drugs, medicaments and biological substances
CPT/HCPCS: 36415; 80053; 81001; 82140; 83735; 85025; 93005; 96365; 99285; J3475